=== PATIENT | male | born 1930 | race Caucasian/White ===

== ENCOUNTER 2017-03-10 06:20 | Day surgery (SDC) | payer OTHER ==
[~2017-03-10] VITALS: Ht 167.6 cm; Wt 89.0 kg
[~2017-03-10 06:20] MED LIST: ADULT LOW STREN81 M2 PO; AMIODARONE HCL200 MG PO; ASPIRIN E.C.81 M1 PO; COUMADIN,JANTOVE1 MG PO; Dilaudid PO; FLOMAX0.4 M1 PO; HYDROCHLOROTHIA25 MG PO; ISOSORBIDE DINI30 MG PO; ISOSORBIDE MONO30 MG PO; LEVO-T100 MCG PO; LEVOTHYROXINE PO; LOPRESSOR50 MG PO; PRILOSEC20 MG PO; SIMVASTATIN20 MG PO; SIMVASTATIN80 M1 PO; TOPROL XL50 MG PO; XARELTO20 MG PO
[2017-03-10 07:02] VITALS: BP 116/53
[2017-03-10 11:50] VITALS: BP 135/66
[2017-03-10 13:45] VITALS: BP 119/78
== END 2017-03-10 14:50 | disposition home or self-care (01) ==
LOC: SDC 06:20
DX: H33.021 Retinal detachment with multiple breaks, right eye (principal); I10 Essential (primary) hypertension; K21.9 Gastro-esophageal reflux disease without esophagitis; E03.9 Hypothyroidism, unspecified; I48.0 Paroxysmal atrial fibrillation; I49.5 Sick sinus syndrome; E78.5 Hyperlipidemia, unspecified; Z95.0 Presence of cardiac pacemaker; Z95.5 Presence of coronary angioplasty implant and graft
CPT/HCPCS: J0690; J3300; V2632

== ENCOUNTER 2017-03-13 15:36 | Day surgery (SDC) | payer OTHER ==
[~2017-03-13] VITALS: Ht 167.6 cm; Wt 88.9 kg
[2017-03-13 16:24] VITALS: BP 154/82
[2017-03-14 00:34] VITALS: BP 132/76
[2017-03-14 04:54] VITALS: BP 142/63
[2017-03-14 07:05] VITALS: BP 179/84
== END 2017-03-14 09:24 | disposition home or self-care (01) ==
LOC: SDC 15:36 → 2EAST 20:46 → 2SOUTH 20:46 → 2EAST 22:37
DX: H43.11 Vitreous hemorrhage, right eye (principal); H21.01 Hyphema, right eye; I48.0 Paroxysmal atrial fibrillation; I49.5 Sick sinus syndrome; Z95.0 Presence of cardiac pacemaker; I10 Essential (primary) hypertension; K21.9 Gastro-esophageal reflux disease without esophagitis; E78.5 Hyperlipidemia, unspecified; Z79.899 Other long term (current) drug therapy
CPT/HCPCS: G0378; J0690; J1120